=== PATIENT | female | born 1950 | race Hispanic/Latino ===

== ENCOUNTER → 2024-07-19 | Outpatient (CLI) | payer OTHER ==
--- NOTE | 2024-07-20 07:07 | HMCSR ---
APPROVED REPORT EXAM: Two-dimensional and M-mode echocardiogram with Doppler and color Doppler. 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 2D Dimensions RVDd3.4 cmLVEF(%)46.9 (>50%)LVED Vol(simp.)78.0 mL IVSd1.0 (0.7-1.1cm)FS(%)23 %LVES Vol(simp.)41.0 mL LVDd4.1 (3.8-5.6cm)LA (2D)3.8 (1.6-4.0cm)LVEF(%, simp.)48 % PWd1.1 (0.7-1.1cm)Ao Root(2D)2.7 (2.0-3.7cm)LA ESV INDEX (BP)21.62 mL/m2 LVDs3.1 (2.5-4.0cm)LVOT diam1.9 (1.8-2.4cm) IVC diam0.8 cm M-Mode Dimensions EPSS0.8 cm Aortic Valve AoV Vmax1.2 m/[place] Peak GR5.6 mmHgLVOT Vmax0.8 m/s AoV VTI0.2 mAo Mean GR3.2 mmHgLVOT VTI0.20 m UMAIR (VMAX)2.2 cm2AVA (VTI) 2.2 cm2 Mitral Valve MV E Vmax54.6 cm/sDECEL Trlg034 ms MV A Vmax80.8 cm/s E/A ratio0.7 MR Max PG16 mmHg TDI E/E' Geoijw68.5E/E' Lateral5.6 Pulmonary Valve PV Vmax0.8 m/sPV VTI1.80 mPV Mean GR1 mmHg PV Peak GR2.3 mmHgPI End Laxmi. Chavez 0.7 cm/s Tricuspid Valve TR Vmax1.7 m/sRAP (EST) 3 [id number] mmHg TR Peak GR12.2 mmHg Left Ventricle The left ventricle structure and function is normal. Regional wall motion abnormalities cannot be exc luded. There is borderline to mild concentric left ventricular hypertrophy. LVEF is 45-50%. Grade 1 d iastolic dysfunction Right Ventricle The right ventricle is normal size. The right ventricular systolic function is normal. Atria The left atrium size is normal. The right atrium size is normal. Aortic Valve Aortic valve is trileaflet. Aortic valve leaflets are sclerotic but open well. No aortic regurgitatio n is present. There is no aortic valvular stenosis. Mitral Valve The mitral valve appears mildly slcerotic but opens well. Mitral regurgitation is trace. There is no mitral valve stenosis. Tricuspid Valve The tricuspid valve leaflets appear normal. There is trace tricuspid regurgitation. Pulmonic Valve The pulmonic valve leaflets are thin and pliable; valve motion is normal. There is trace pulmonic leodan vular regurgitation. Great Vessels The aortic root is normal in size. The IVC is normal in size and collapses >50% with inspiration. Pericardium No pericardial effusion. Conclusion LVEF is 45-50%. There is borderline to mild concentric left ventricular hypertrophy. Grade 1 diastolic dysfunction The aortic root is normal in size. No pericardial effusion.
== END | disposition home or self-care (01) ==
LOC: SHCH 10:27
PROVIDERS: ATTEND Internal Medicine Cardiovascular Disease
DX: I08.0 Rheumatic disorders of both mitral and aortic valves (principal); I25.10 Atherosclerotic heart disease of native coronary artery without angina pectoris
CPT/HCPCS: 93306